=== PATIENT | male | born 1935 ===

== ENCOUNTER → 2016-12-20 | Outpatient (CLI) | payer OTHER, BC ==
[2016-12-20 13:40] LABS: URINE APPEARANCE CLEAR (CLEAR); URINE BILIRUBIN NEG (NEG); URINE COLOR DK YELLOW; URINE NITRITE NEG (NEG); URINE SPECIFIC GRAVITY 1.024 (1.000-1.030); UROBILINOGEN NEG (NEG); ZZUR CULT IF INDIC CLEAN CATCH NO
[2016-12-20 13:42] LABS: MANUAL MICROSCOPIC REQUIRED? NO; REVIEW REQ? NO
== END | disposition home or self-care (01) ==
LOC: C.LABMFLN 13:26
PROVIDERS: ATTEND Family Medicine
DX: R35.8 Other polyuria (principal)